=== PATIENT | female | born 1970 | race Two or more races ===

== ENCOUNTER 2017-03-27 15:41 | Emergency (ER) | payer BC ==
--- NOTE | 2017-04-16 15:42 | ER ---
ADMIT: 03/27/2017 RM/LOC: ER [facility] MR#: [id number] [address] [id number] SILVIA GARCIA [address] [place] [id number] Emergency Room Report SEX: F AGE: 46 : 1970 DATE: 03/27/2017 ADDENDUM: This patient comes into the ER because she was walking, had her sunglasses on her forehead. She fell and her sunglasses cut into the top of her scalp. She denies any loss of consciousness and really does not have any pain. On physical exam, she does have a 1 cm laceration on her scalp in the head, right in the hairline above her forehead. I placed three stainless steel caren to the area after it was cleaned by the nurse and she was given her tetanus booster. Caren are to be removed in 5 days. Please see my T- sheet. ERICA Edmonds / Frederick Rose MD / samuell JOB #: [id number] CC: Frederick Rose MD, Attending Physician Debbie Kelly MD, Family Physician
== END 2017-03-27 16:27 | disposition home or self-care (01) ==
LOC: ER 15:41
PROC: 0HQ0XZZ Repair Scalp Skin, External Approach (ICD-10-PCS; principal; 2017-03-27)
DX: S01.01XA Laceration without foreign body of scalp, initial encounter (principal); F32.9 Major depressive disorder, single episode, unspecified; Z90.49 Acquired absence of other specified parts of digestive tract; Z88.8 Allergy status to other drugs, medicaments and biological substances; Z79.899 Other long term (current) drug therapy; Z23 Encounter for immunization; W01.110A Fall on same level from slipping, tripping and stumbling with subsequent striking against sharp glass, initial encounter; Y92.009 Unspecified place in unspecified non-institutional (private) residence as the place of occurrence of the external cause